=== PATIENT | female | born 1960 | race Caucasian/White ===

== ENCOUNTER 2018-01-01 22:15 | Observation (INO) | payer OTHER ==
[~2018-01-01] VITALS: Ht 160 cm; Wt 86.0 kg
[2018-01-01 22:18] VITALS: BP 177/79; PULSE 81; RESP 16; TEMP 97.9; O2SAT 99
[2018-01-01] MEDS ORDERED: TIZA4CAP3 PO (22:38)
[2018-01-01] MEDS ORDERED: ACYC400T PO (22:38)
[2018-01-01] MEDS ORDERED: GABA400C5 PO (22:38)
[2018-01-01] MEDS ORDERED: EZET10 PO (22:38)
[2018-01-01] MEDS ORDERED: EMPA1TAB3 PO (22:38)
[2018-01-01] MEDS ORDERED: ASPI81CH6 CHEW (22:38)
[2018-01-01] MEDS ORDERED: GLYB5TAB3 PO (22:38)
[2018-01-01] MEDS ORDERED: XANA1TAB2 PO (22:38)
[2018-01-01 22:43] VITALS: BP 147/68; PULSE 75; RESP 18; O2SAT 98
[2018-01-01] MEDS ORDERED: DIAZEPAM 5 MG TAB PO ONE (22:45)
--- NOTE | 2018-01-01 22:47 | PD ---
HPI Chief Complaint: Chest Pain Time Seen by Provider: 22:33 Travel History International Travel<30 days: No Contact w/Intl Traveler<30days: No Traveled to known affect area: No History of Present Illness HPI 57yo F with PMH of DM, HTN, cig smoker here with c/o bilateral upper back pain that radiates to bilateral chest for a few days. However, said it was constant for the last 3 hours. Pain is sharp, worst with movement. Denies any fever, sob, n/v, abdominal pain, focal weakness or numbness. Denies any trauma or fall. PFSH Past Medical History Anxiety: Yes High Cholesterol: Yes Diabetes: Yes Patient Takes Glucophage: Yes Hypertension: Yes Immunizations Current: Yes Triglycerides - High: Yes Tetanus Vaccination: Unknown Influenza Vaccination: No ?: Not Social History Alcohol Use: No Tobacco Use: Yes Substance Use: No Allergies-Medications (Allergen,Severity, Reaction): Coded Allergies: Tetanus Vaccines and Toxoid (Verified Allergy, Severe, 01/01/18) shellfish derived (Verified Allergy, Severe, Anaphylaxis, 01/01/18) Reported Meds & Prescriptions Reported Meds & Active Scripts Active Reported Aspirin Low Dose (Aspirin) 81 Mg Chew 81 Mg CHEW DAILY Zetia (Ezetimibe) 10 Mg Tab 10 Mg PO DAILY Glyburide 5 Mg Tab 5 Mg PO DAILY Take with meals at the same time each day Jardiance (Empagliflozin) 25 Mg Tab 25 Mg PO DAILY Gabapentin 400 Mg Cap 400 Cap PO HS Tizanidine (Tizanidine HCl) 4 Mg Cap 4 Mg PO TID Xanax (Alprazolam) 1 Mg Tab 1 Mg PO Q6H PRN Acyclovir 400 Mg Tab 400 Mg PO BID Review of Systems Except as stated in HPI: all other systems reviewed are Neg Physical Exam Narrative GENERAL: 57yo F in mild distress. SKIN: Focused skin assessment warm/dry. HEAD: Atraumatic. Normocephalic. EYES: Pupils equal and round. No scleral icterus. No injection or drainage. ENT: No nasal bleeding or discharge. Mucous membranes pink and moist. NECK: Trachea midline. No JVD. CARDIOVASCULAR: Regular rate and rhythm. No murmur appreciated. RESPIRATORY: No accessory muscle use. Clear to auscultation. Breath sounds equal bilaterally. GASTROINTESTINAL: Abdomen soft, non-tender, nondistended. No rebound tenderness or guarding. MUSCULOSKELETAL: +TTP bilateral scapula and bilateral lower ribs. No obvious deformities. No clubbing. No cyanosis. No edema. NEUROLOGICAL: Awake and alert. No obvious cranial nerve deficits. Motor grossly within normal limits. Normal speech. PSYCHIATRIC: Appropriate mood and affect; insight and judgment normal. Data Data Last Documented VS Vital Signs Date Time Temp Pulse Resp B/P (MAP) Pulse Ox O2 Delivery O2 Flow Rate FiO2 01/01/18 22:43 75 18 147/68 (94) 98 Room Air 01/01/18:18 97.9 Orders Orders Basic Metabolic Panel (Bmp) (01/01/18 22:42) Complete Blood Count With Diff (01/01/18 22:42) Magnesium (Mg) (01/01/18 22:42) Prothrombin Time / Inr (Pt) (01/01/18 22:42) Act Partial Throm Time (Ptt) (01/01/18 22:42) Troponin I (01/01/18 22:42) Chest, Single Ap (01/01/18 22:42) Diazepam (Valium) (01/01/18 22:45) Aspirin Chew (Aspirin Chew) (01/02/18 00:15) Morphine Inj (Morphine Inj) (01/02/18 00:15) Admit Order (Ed Use Only) (01/02/18 00:07) Activity Bed Rest With Brp (01/02/18 00:08) Vital Signs (Adult) Q4H (01/02/18 00:08) Cardiac Rhythm .As Directed (01/02/18 00:08) Notify Dr: Other .PRN (01/02/18 00:08) Notify Parameters (01/02/18 00:08) Resp Oxygen Nasal Cannula (01/02/18 ) Ckmb (Isoenzyme) Profile (01/02/18 00:08) Ckmb (Isoenzyme) Profile (01/02/18 03:08) Troponin I (01/02/18 00:08) Troponin I (01/02/18 03:08) Electrocardiogram (01/02/18 00:08) Electrocardiogram (01/02/18 03:08) ^ Obtain (01/02/18 00:08) Sodium Chloride 0.9% Flush (Ns Flush) (01/02/18 00:15) Sodium Chloride 0.9% Flush (Ns Flush) (01/02/18 09:00) Director Talent Management / Telemetry NITESH.Q8H (01/02/18 00:08) Labs Laboratory Tests Test 01/01/18 22:46 White Blood Count 10.6 TH/MM3 Red Blood Count 4.59 MIL/MM3 Hemoglobin 13.6 GM/DL Hematocrit 39.9 % Mean Corpuscular Volume 86.8 FL Mean Corpuscular Hemoglobin 29.6 PG Mean Corpuscular Hemoglobin Concent 34.1 % Red Cell Distribution Width 13.8 % Platelet Count 283 TH/MM3 Mean Platelet Volume 7.9 FL Neutrophils (%) (Auto) 61.1 % Lymphocytes (%) (Auto) 29.2 % Monocytes (%) (Auto) 5.5 % Eosinophils (%) (Auto) 3.3 % Basophils (%) (Auto) 0.9 % Neutrophils # (Auto) 6.4 TH/MM3 Lymphocytes # (Auto) 3.1 TH/MM3 Monocytes # (Auto) 0.6 TH/MM3 Eosinophils # (Auto) 0.4 TH/MM3 Basophils # (Auto) 0.1 TH/MM3 CBC Comment DIFF FINAL Differential Comment Prothrombin Time 10.0 SEC Prothromb Time International Ratio 1.0 RATIO Activated Partial Thromboplast Time 26.1 SEC Blood Urea Nitrogen 11 MG/DL Creatinine 0.67 MG/DL Random Glucose 101 MG/DL Calcium Level 9.2 MG/DL Magnesium Level 2.1 MG/DL Sodium Level 137 MEQ/L Potassium Level 3.8 MEQ/L Chloride Level 103 MEQ/L Carbon Dioxide Level 28.5 MEQ/L Anion Gap 6 MEQ/L Estimat Glomerular Filtration Rate 90 ML/MIN Troponin I LESS THAN 0.02 NG/ML [facility] Medical Decision Making Medical Screen Exam Complete: Yes Emergency Medical Condition: Yes Interpretation(s) EKG: NSR 73bpm. Normal axis. No ST segment elevation or depression. +PVC. Differential Diagnosis Musculoskeletal pain vs. ACS vs. GERD Narrative Course 57yo F with atypical chest pain and back pain. Pain seems very musculoskeletal so will give valium. No abdominal pain on exam. Labs reviewed, no leukocytosis. H/H normal. Troponin negative. CXR showed no active disease. Pt reevaluated at bedside and still with pain. Will give aspirin and morphine 2mg IV. Pt has not had any stress test and has no office services specialist. Pt does have some cardiac risk factors including HTN, DM, cig smoking and age. Will admit for observation in chest pain center for serial EKG and cardiac enzymes. Diagnosis Primary Impression: Chest pain Qualified Codes: R07.9 - Chest pain, unspecified Admitting Information Admitting Physician Requests: Observation Maribel Chaidez DO Jan 01, 2018 22:47
[2018-01-01 22:58] LABS: AUTOMATED NEUTROPHIL # 6.4 TH/MM3 (1.8-7.7); BASOPHIL # 0.1 TH/MM3 (0-0.2); BASOPHIL % 0.9 % (0.0-2.0); EOSINOPHIL # 0.4 TH/MM3 (0-0.4); EOSINOPHIL % 3.3 % (0.0-4.0); HEMATOCRIT 39.9 % (35.0-46.0); HEMOGLOBIN 13.6 GM/DL (11.6-15.3); LYMPH % 29.2 % (9.0-44.0); LYMPHOCYTE # 3.1 TH/MM3 (1.0-4.8); MEAN CELL VOLUME 86.8 FL (80.0-100.0); MEAN CORPUSCULAR HEMOGLOBIN 29.6 PG (27.0-34.0); MEAN CORPUSCULAR HGB CONC 34.1 % (32.0-36.0); MEAN PLATELET VOLUME 7.9 FL (7.0-11.0); MONO % 5.5 % (0.0-8.0); MONOCYTE # 0.6 TH/MM3 (0-0.9); NEUT % 61.1 % (16.0-70.0); PLATELET COUNT 283 TH/MM3 (150-450); RED BLOOD COUNT 4.59 MIL/MM3 (4.00-5.30); RED CELL DISTRIBUTION WIDTH 13.8 % (11.6-17.2); WHITE BLOOD COUNT 10.6 TH/MM3 (4.0-11.0)
--- NOTE | 2018-01-01 22:58 | RADRPT ---
EXAM DATE/TIME: 01/01/2018 22:52 [facility] COMPARISON: No previous studies available for comparison. INDICATIONS : Chest and rib pain. No known injury. MEDICAL HISTORY : None. SURGICAL HISTORY : None. ENCOUNTER: Initial ACUITY: 1 day PAIN SCORE: 8/10 LOCATION: Right middle ribs FINDINGS: A single view of the chest demonstrates the lungs to be symmetrically aerated without evidence of mas s, infiltrate or effusion. The cardiomediastinal contours are unremarkable. Osseous structures are intact. CONCLUSION: 1. No active disease. Armando Boyer MD on January 01, 2018 at 22:55 Board Certified Radiologist. This report was verified electronically.
[2018-01-01 23:18] LABS: BICARBONATE 28.5 MEQ/L (21.0-32.0); BLOOD UREA NITROGEN 11 MG/DL (7-18); CALCIUM 9.2 MG/DL (8.5-10.1); CHLORIDE 103 MEQ/L (98-107); CREATININE 0.67 MG/DL (0.50-1.00); GLOMERULAR FILTRATION RATE 90 ML/MIN (>89); GLUCOSE,RANDOM 101 MG/DL (74-106); MAGNESIUM 2.1 MG/DL (1.5-2.5); SODIUM (NA) 137 MEQ/L (136-145); TROPONIN I LESS THAN 0.02 NG/ML (0.02-0.05)
[2018-01-02] MEDS ORDERED: MORPHINE SULFATE 2 MG/ML INJ IV PUSH ONE (00:15)
[2018-01-02] MEDS ORDERED: SODIUM CHLORIDE 0.9% FLUSH 10 ML FLUSH IV FLUSH PRN (00:15)
[2018-01-02] MEDS ORDERED: ASPIRIN 81 MG CHEW TAB PO ONE (00:15)
[2018-01-02 00:29] VITALS: O2SAT 98
[2018-01-02 01:41] VITALS: BP 115/61; PULSE 69; RESP 16; O2SAT 98
[2018-01-02 02:13] LABS: TROPONIN I LESS THAN 0.02 NG/ML (0.02-0.05)
[2018-01-02 04:08] LABS: TROPONIN I LESS THAN 0.02 NG/ML (0.02-0.05)
[2018-01-02 05:30] VITALS: BP 121/64; PULSE 71; RESP 16; O2SAT 98
[2018-01-02 07:35] VITALS: BP 141/66; PULSE 76; RESP 19; TEMP 97.5; O2SAT 100
[2018-01-02] MEDS ORDERED: DEXTROSE 50% IN WATER 50 ML VIAL(D50) IV PUSH PRN (08:45)
[2018-01-02] MEDS ORDERED: GLUCAGON 1 MG/ML VIAL OTHER PRN (08:45)
[2018-01-02] MEDS ORDERED: ALPRAZolam 1 MG TAB PO PRN (08:45)
[2018-01-02] MEDS ORDERED: SODIUM CHLORIDE 0.9% FLUSH 10 ML FLUSH IV FLUSH SCH (09:00)
[2018-01-02] MEDS ORDERED: EZETIMIBE 10 MG TAB PO SCH (09:00)
[2018-01-02] MEDS ORDERED: MORPHINE SULFATE 4 MG/ML INJ IV PUSH ONE (09:10)
--- NOTE | 2018-01-02 11:03 | HHI.HP ---
HPI Primary Care Physician Unknown Chief Complaint Back and chest pain History of Present Illness This is a 57-year-old female history of diabetes and chronic back pain that presents to ED with a complaint of developing bilateral upper back pain between her shoulder blades that radiated around to bilateral sides of her chest. She points to lateral aspect. States it has been present for a few days. Worsen with movement. Feels different than her chronic back pain stating that it usually is lower back pain. Cannot recall any recent trauma. Denies other type of chest discomfort. Denies shortness of breath, nausea, or diaphoresis. Denies history of CAD. Denies numbness, tingling, weakness in extremities. Review of Systems General: Patient denies fevers, chills, and recent travel. HEENT: Patient denies headache, sore throat, difficulty swallowing. Cardiovascular: Has the chest discomfort as mentioned above. Denies sensation of heart beating rapidly or irregularly. No syncope. Denies diaphoresis. Respiratory: Denies shortness of breath or inspirational chest discomfort. Denies coughing wheezing or hemoptysis. GI: Patient denies nausea, vomiting, diarrhea, abdominal pain, bloody stools. Musculoskeletal: Complains of back pain. Patient denies joint pain or edema. Denies calf pain or edema. Neurovascular: Patient denies numbness, tingling, weakness in extremities. Denies headache. Endocrine: Denies polyuria and polydipsia. Hematologic: Denies easy bruising. Skin: Denies rash or itching. Past Family Social History Allergies: Coded Allergies: Tetanus Vaccines and Toxoid (Verified Allergy, Severe, 01/01/18) shellfish derived (Verified Allergy, Severe, Anaphylaxis, 01/01/18) Past Medical History Chronic low back pain. Diabetes. Denies hypertension, hyperlipidemia, and known CAD. Past Surgical History She has had back surgery. Reported Medications Reported Meds & Active Scripts Active Reported Aspirin Low Dose (Aspirin) 81 Mg Chew 81 Mg CHEW DAILY Zetia (Ezetimibe) 10 Mg Tab 10 Mg PO DAILY Glyburide 5 Mg Tab 5 Mg PO DAILY Take with meals at the same time each day Jardiance (Empagliflozin) 25 Mg Tab 25 Mg PO DAILY Tizanidine (Tizanidine HCl) 4 Mg Cap 4 Mg PO TID Xanax (Alprazolam) 1 Mg Tab 1 Mg PO Q6H PRN Acyclovir 400 Mg Tab 400 Mg PO BID Active Ordered Medications Current Medications Medications (Trade) Dose Ordered Sig/Itz Route Start Time Stop Time Status Last Admin (NS Flush) 2 ml UNSCH PRN IV FLUSH 01/02/18 00:15 (NS Flush) 2 ml BID IV FLUSH 01/02/18 09:00 01/02/18 09:36 (Xanax) 1 mg Q6H PRN PO 01/02/18 08:45 01/02/18 09:37 (Zetia) 10 mg DAILY PO 01/02/18 09:00 01/02/18 09:36 (Neurontin) 400 mg HS PO 01/02/18 21:00 (Zanaflex) 4 mg TID PO 01/02/18 09:00 (NovoLOG SUPPLEMENTAL SCALE) 1 ACHS SLIDING SCALE SQ 01/02/18 12:00 (D50w (Vial) Inj) 50 ml UNSCH PRN IV PUSH 01/02/18 08:45 (Glucagon Inj) 1 mg UNSCH PRN OTHER 01/02/18 08:45 Family History Denies family history of CAD. Social History Patient has smoked approximately 1 pack of cigars daily for approximately 25 years. Denies alcohol or illicit drugs. Physical Exam Vital Signs Vital Signs Date Time Temp Pulse Resp B/P (MAP) Pulse Ox O2 Delivery O2 Flow Rate FiO2 01/02/18 07:35 76 19 100 Room Air 01/02/18 07:35 97.5 76 19 141/66 (91) 100 Room Air 01/02/18 05:30 71 16 121/64 (83) 98 Room Air 01/02/18 01:41 69 16 115/61 (79) 98 Room Air 01/02/18 00:29 98 01/02/18 00:27 18 01/01/18 22:43 75 18 147/68 (94) 98 Room Air 01/01/18 22:32 75 18 01/01/18 22:18 97.9 81 16 177/79 (111) 99 Room Air Physical Exam GENERAL: This is a well-nourished, well-developed patient, in no apparent distress. Patient speaks in clear complete sentences. Patient is pleasant. HEENT: Head is atraumatic and normocephalic. Neck is supple without lymphadenopathy and trachea is midline. No JVD or carotid bruits. CARDIOVASCULAR: Regular rate and rhythm without murmurs, gallops, or rubs. RESPIRATORY: Clear to auscultation. Breath sounds equal bilaterally. No wheezes , rales, or rhonchi. Chest wall is nontender. No use of accessory muscles. GASTROINTESTINAL: Abdomen is nontender, nondistended. Abdomen soft. No obvious pulsatile mass or bruit. No CVA tenderness. Strong femoral pulses bilaterally. Normal bowel sounds in all quadrants. MUSCULOSKELETAL: There is discomfort with flexion extension of her back. No spinous process point tenderness when palpating cervical, thoracic, or lumbar spine. Patient is moving upper and lower extremities freely. No calf tenderness or edema, no Homans sign. Strong pulses in upper and lower extremities. NEUROLOGICAL: Patient is alert and oriented. Cranial nerves 2-12 are grossly intact. No focal deficits and speech is clear. SKIN: No rash and turgor is normal. Laboratory Laboratory Tests Test 01/01/18 22:46 01/02/18 01:40 01/02/18 03:27 White Blood Count 10.6 Red Blood Count 4.59 Hemoglobin 13.6 Hematocrit 39.9 Mean Corpuscular Volume 86.8 Mean Corpuscular Hemoglobin 29.6 Mean Corpuscular Hemoglobin Concent 34.1 Red Cell Distribution Width 13.8 Platelet Count 283 Mean Platelet Volume 7.9 Neutrophils (%) (Auto) 61.1 Lymphocytes (%) (Auto) 29.2 Monocytes (%) (Auto) 5.5 Eosinophils (%) (Auto) 3.3 Basophils (%) (Auto) 0.9 Neutrophils # (Auto) 6.4 Lymphocytes # (Auto) 3.1 Monocytes # (Auto) 0.6 Eosinophils # (Auto) 0.4 Basophils # (Auto) 0.1 CBC Comment DIFF FINAL Differential Comment Prothrombin Time 10.0 Prothromb Time International Ratio 1.0 Activated Partial Thromboplast Time 26.1 Blood Urea Nitrogen 11 Creatinine 0.67 Random Glucose 101 Calcium Level 9.2 Magnesium Level 2.1 Sodium Level 137 Potassium Level 3.8 Chloride Level 103 Carbon Dioxide Level 28.5 Anion Gap 6 Estimat Glomerular Filtration Rate 90 Troponin I LESS THAN 0.02 LESS THAN 0.02 LESS THAN 0.02 Total Creatine Kinase 59 60 Result Diagram: 01/01/18224501/01/182245 Imaging Last 48 hours Impressions Chest X-Ray 01/01/182241 Signed Impressions: Service Date/Time: Monday, January 01, 2018 22:52 - CONCLUSION: 1. No active disease. Armando Boyer MD Course EKGs are sinus rhythm with PVCs. No significant ST segment depressions or elevations. Caprini VTE Risk Assessment Caprini VTE Risk Assessment: No/Low Risk (score <= 1) Caprini Risk Assessment Model Point Value = 1 Point Value = 2 Point Value = 3 Point Value = 5 Age 41-60 Minor surgery BMI > 25 kg/m2 Swollen legs Varicose veins or History of unexplained or recurrent spontaneous Oral contraceptives or hormone replacement Sepsis (< 1 month) Serious lung disease, including pneumonia (< 1 month) Abnormal pulmonary function Acute myocardial infarction Congestive heart failure (< 1 month) History of inflammatory bowel disease Medical patient at bed rest Age 61-74 Arthroscopic surgery Major open surgery (> 45 min) Laparoscopic surgery (> 45 min) Malignancy Confined to bed (> 72 hours) Immobilizing plaster cast Central venous access Age >= 75 History of VTE Family history of VTE Factor V Leiden Prothrombin [id number] Lupus anticoagulant Anticardiolipin antibodies Elevated serum homocysteine Heparin-induced thrombocytopenia Other congenital or acquired thrombophilia Stroke (< 1 month) Elective arthroplasty Hip, pelvis, or leg fracture Acute spinal cord injury (< 1 month) Prophylaxis Regimen Total Risk Factor Score Risk Level Prophylaxis Regimen 0-1 Low Early ambulation 2 Moderate Order ONE of the following: *Sequential Compression Device (SCD) *Heparin 5000 units SQ BID 3-4 Higher Order ONE of the following medications: *Heparin 5000 units SQ TID *Enoxaparin/Lovenox 40 mg SQ daily (WT < 150 kg, CrCl > 30 mL/min) *Enoxaparin/Lovenox 30 mg SQ daily (WT < 150 kg, CrCl > 10-29 mL/min) *Enoxaparin/Lovenox 30 mg SQ BID (WT < 150 kg, CrCl > 30 mL/min) AND/OR *Sequential Compression Device (SCD) 5 or more Highest Order ONE of the following medications: *Heparin 5000 units SQ TID (Preferred with Epidurals) *Enoxaparin/Lovenox 40 mg SQ daily (WT < 150 kg, CrCl > 30 mL/min) *Enoxaparin/Lovenox 30 mg SQ daily (WT < 150 kg, CrCl > 10-29 mL/min) *Enoxaparin/Lovenox 30 mg SQ BID (WT < 150 kg, CrCl > 30 mL/min) AND *Sequential Compression Device (SCD) Assessment and Plan Assessment and Plan * Chest pain: Patient has had serial cardiac enzymes and EKGs were ruling out purposes. She has been seen by Dr. Chapman of cardiology and the chest pain center and will undergo a Lexiscan. She will be discharged home if her stress test is nonischemic with instructions to follow-up with PCP. Return to ED for interval issues. * Diabetes: Patient will be on sliding scale insulin coverage while in the chest pain center. Resume education at discharge. Follow diabetic diet. Patient should discuss being on CAITY inhibitor and statin therapy with her PCP. She currently is not on these medications. * Tobacco abuse: Patient has been counseled on importance of smoking cessation. Patient is stable at this time. She is agreeable to this plan. Results of Lexiscan discussed with Dr. Chapman. Patient will be discharged at this time. To continue aspirin. Will need outpatient cardiology follow-up. Again patient was counseled on importance of smoking cessation. Patient should return to ED interval issues. Talat Dailey Jan 02, 2018 11:03
[2018-01-02] MEDS ORDERED: REGADENOSON INJ 0.4 MG/5 ML SYR ONE (11:22)
[2018-01-02] MEDS ORDERED: INSULIN ASPART SUPPLEMENTAL SCALE SQ SCH (12:00)
[2018-01-02 13:09] VITALS: BP 171/70; PULSE 61; RESP 19; O2SAT 100
--- NOTE | 2018-01-02 13:18 | RADRPT ---
EXAM DATE/TIME: 01/02/2018 10:43 [facility] COMPARISON: No previous studies available for comparison. INDICATIONS : Chest pain for 2 days. Angina. DOSE: 27.2 mCi Tc99m Myoview at stress. 8.1 mCi Tc99m Myoview at rest. 0.4 mg Lexiscan STRESS SYMPTOMS: Nausea, weird, and dizzy. EJECTION FRACTION: 67% MEDICAL HISTORY : Hypertension. Diabetes mellitus type 2. SURGICAL HISTORY : None. ENCOUNTER: Initial ACUITY: 2 days PAIN SCALE: 3/10 LOCATION: Bilateral chest TECHNIQUE: The patient underwent pharmacologic stress with infusion of prescribed dose. Continuous ECG tracing was monitored during stress. Gated SPECT imaging was performed after stress and conventional SPECT i maging was performed at rest. The examination was performed on a SPECT/CT scanner, both attenuation and non-corrected datasets were reviewed. FINDINGS: DISTRIBUTION: The maximum perfused segment at stress is in the septal wall. PERFUSION STUDY: Small region of focal decreased perfusion in the anterolateral wall. GATED STUDY: There is intact wall motion and thickening without hypokinetic or dyskinetic segments. CONCLUSION: 1. Findings suggesting small region of anterolateral wall ischemia. 2. No focal wall motion abnormality with normal EF of 67%. RISK CATEGORY: Low (<1% Annual Mortality Rate) Roosevelt Caputo MD on January 02, 2018 at 13:10 Board Certified Radiologist. This report was verified electronically.
--- NOTE | 2018-01-02 14:01 | HHI.DCPOC ---
Discharge Care Plan Diagnosis: (1) Chest pain (2) DM (diabetes mellitus) (3) Tobacco abuse (4) Chronic back pain Goals to Promote Your Health * To prevent worsening of your condition and complications * To maintain your health at the optimal level Directions to Meet Your Goals Take your medications as prescribed Follow your dietary instruction Follow activity as directed Keep your appointments as scheduled Take your immunizations and boosters as scheduled If your symptoms worsen call your PCP, if no PCP go to Urgent Care Center or Emergency Room Smoking is Dangerous to Your Health. Avoid second hand smoke Call the 24-hour hour crisis hotline for domestic abuse at Talat Dailey Jan 02, 2018 14:01
[2018-01-02] MEDS ORDERED: ACETAMINOPHEN/HYDROcodone 325 MG/7.5 MG TAB PO ONE (14:30)
[2018-01-02 14:39] VITALS: BP 172/73
--- NOTE | 2018-01-02 18:01 | TR ---
Date Performed: 01/02/2018 Time Performed: 11:10:52 DOCTOR: Colleen Chapman DRUG LIST: CLINICAL HISTORY: REASON FOR TEST: REASON FOR ENDING: OBSERVATION: CONCLUSION: Lexiscan stress test was performed under standard four minute protocol. Radionuclid e was injected one minute prior to ending the test. No electrocardiographic abormalities were present to suggest ischemia. Nuclear imaging and interpretation are pending. COMMENTS:
--- NOTE | 2018-01-02 18:04 | EKG ---
Date Performed: 01/02/2018 Time Performed: 01:31:41 PTAGE: 57 years EKG: Sinus rhythm WITH OCCASIONAL VENTRICULAR PREMATURE COMPLEXES BORDERLINE ECG Since PREVIOUS TRACING , no significant change noted DOCTOR: Colleen Chapman Interpretating Date/Time 01/02/2018 18:03:40
--- NOTE | 2018-01-02 18:04 | EKG ---
Date Performed: 01/02/2018 Time Performed: 03:30:38 PTAGE: 57 years EKG: Sinus rhythm WITH OCCASIONAL VENTRICULAR PREMATURE COMPLEXES BORDERLINE ECG Since PREVIOUS TRACING , no significant change noted PREVIOUS TRACIN01/02/2018 01.31 DOCTOR: Colleen Chapman Interpretating Date/Time 01/02/2018 18:03:26
--- NOTE | 2018-01-02 18:08 | EKG ---
Date Performed: 01/01/2018 Time Performed: 22:30:39 PTAGE: 57 years EKG: Sinus rhythm WITH OCCASIONAL VENTRICULAR PREMATURE COMPLEXES BORDERLINE ECG NO PREVIOUS TRACING DOCTOR: Colleen Chapman Interpretating Date/Time 01/02/2018 18:05:54
[2018-01-02] MEDS ORDERED: GABAPENTIN 400 MG CAP PO SCH (21:00)
== END 2018-01-02 14:39 | disposition home or self-care (01) ==
LOC: NEPE 22:15 → NEDA 01-02 00:09 → NEDH 01-02 04:32
PROVIDERS: ADMIT Internal Medicine Cardiovascular Disease; ATTEND Internal Medicine Cardiovascular Disease
DX: R07.89 Other chest pain (principal); E11.9 Type 2 diabetes mellitus without complications; I49.3 Ventricular premature depolarization; I10 Essential (primary) hypertension; E78.00 Pure hypercholesterolemia, unspecified; F41.9 Anxiety disorder, unspecified; M54.9 Dorsalgia, unspecified; G89.29 Other chronic pain; F17.210 Nicotine dependence, cigarettes, uncomplicated; Z71.6 Tobacco abuse counseling; Z79.899 Other long term (current) drug therapy; Z79.82 Long term (current) use of aspirin
CPT/HCPCS: 71045; 78452; 80048; 82550; 83735; 84484; 85025; 85610; 85730; 93005; 93017; 96374; 96376; 99285; A9502; G0378; J2270; J2785